=== PATIENT | female | born 1980 | race American Indian/Alaskan Native ===

== ENCOUNTER 2019-06-11 15:13 | Observation (INO) | payer BC ==
[2019-06-11] MEDS ORDERED: NORMODYNE IV ONE ×2 (16:05→18:13)
[2019-06-11] MEDS ORDERED: ZOFRAN IV ONE (16:24)
[2019-06-11] MEDS ORDERED: MORPHINE IV ONE (16:24)
[2019-06-11 16:34] LABS: Basophils # (Auto) 0.1 K/mm3 (0.0-0.1); Basophils % (Auto) 0.5 % (0.0-1.8); Eosinophils # (Auto) 0.1 K/mm3 (0.0-0.4); Hematocrit 44.7 % (30.3-42.9); Hemoglobin 14.9 gm/dl (10.1-14.3); Lymphocytes # (Auto) 1.6 K/mm3 (1.2-5.4); Mean Corpuscular HGB Conc 33 % (30-34); Mean Corpuscular Volume 90 fl (79-97); Monocytes # (Auto) 0.6 K/mm3 (0.0-0.8); Monocytes % (Auto) 5.5 % (0.0-7.3); Platelet Count 354 K/mm3 (140-440); Red Blood Count 4.96 M/mm3 (3.65-5.03); Red Cell Distribution Width 13.6 % (13.2-15.2)
[2019-06-11 16:45] LABS: Partial Thromboplastin Time 27.5 Sec. (24.2-36.6)
[2019-06-11 16:53] LABS: BUN/Creatinine Ratio 20; Blood Urea Nitrogen 16 mg/dL (7-17); Calcium 9.5 mg/dL (8.4-10.2); Hemolysis Index 15
[2019-06-11 16:57] LABS: Alanine Aminotransferase 17 units/L (7-56); Albumin 4.5 g/dL (3.9-5)
[2019-06-11 17:00] LABS: INR 1.01 (0.87-1.13)
[2019-06-11 17:01] LABS: Bilirubin,Direct < 0.2 mg/dL (0-0.2)
[2019-06-11 17:05] LABS: Bacteria,Urine 1+ /HPF (Negative); Bilirubin,Urine NEG (Negative); Blood,Urine NEG (Negative); Color,Urine Yellow (Yellow); Mucus,Urine FEW /HPF; Protein,Urine <15 mg/dL mg/dL (Negative); Urobilinogen,Urine < 2.0 mg/dL (<2.0)
[2019-06-11 17:33] LABS: Amphetamine Screen,Urine PRESUMPTIVE NEGATIVE; Benzodiazepines Screen,Urine PRESUMPTIVE NEGATIVE; Cannabinoid Screen,Urine PRESUMPTIVE NEGATIVE; Cocaine Screen,Urine PRESUMPTIVE NEGATIVE; Methadone Screen,Urine PRESUMPTIVE NEGATIVE; Opiate Screen,Urine PRESUMPTIVE NEGATIVE
--- NOTE | 2019-06-11 17:40 | XRay Report ---
CHEST 1 VIEW INDICATION / CLINICAL INFORMATION: cp upt. COMPARISON: None available. FINDINGS: SUPPORT DEVICES: None. HEART / MEDIASTINUM: No significant abnormality. LUNGS / PLEURA: No significant pulmonary or pleural abnormality. No pneumothorax. ADDITIONAL FINDINGS: No significant additional findings. IMPRESSION: 1. No significant change Signer Name: Leoncio Magaña MD Signed: 06/11/2019 5:36 PM Workstation Name: [id number]
--- NOTE | 2019-06-11 17:42 | Cat Scan Report ---
CT BRAIN: 06/11/2019 INDICATION / CLINICAL INFORMATION: severe headache, htn,. COMPARISON: None available. FINDINGS: BRAIN/INTRACRANIAL STRUCTURES: Unenhanced CT images of the brain demonstrate no evidence of acute int racranial abnormality. Ventricles and sulci are within normal limits of size and shape for a patient of this age. There is no evidence of acute ischemic injury, hemorrhage, or mass. There are no abnormal extra-axial fluid collections. EXTRACRANIAL STRUCTURES: Unremarkable. IMPRESSION: No acute abnormality. All CT scans at this location are performed using dose reduction to ALARA by means of automated expos ure control. Signer Name: Marco Fraser MD Signed: 06/11/2019 5:37 PM Workstation Name: [id number]
[2019-06-11] MEDS ORDERED: NORCO 10/325 PO ONE (18:13)
[2019-06-11] MEDS ORDERED: VASOTEC IV ONE (20:38)
[2019-06-11] MEDS ORDERED: CARDENE 50 MG in NACL 0.9% 250ML 230 ML IV SCH (22:00)
--- NOTE | 2019-06-11 22:04 | Emergency Department Report ---
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 symptoms have been constant since onset and patient rates them as severe in severity. patient reports her pain is located mid chest pain, and describes the quality as pressure. Symptoms are associated elevated blood pressure and headache, but she denies any n/v. MD Complaint: chest pain -: Gradual Severity scale (0 -10): 4 - Related Data Home Medications Medication Instructions Recorded Confirmed Last Taken Butalb/Acetamin/Caff 50-325-40 50 mg PO DAILY 06/11/19 06/11/19 Unknown [Fioricet 50-325-40] Lisinopril [Zestril TAB] 40 mg PO DAILY 06/11/19 06/11/19 Unknown Allergies Allergy/AdvReac Type Severity Reaction Status Date / Time No Known Allergies Allergy Unverified 06/11/19 16:40 Heart Score - HEART Score History: Slightly suspicious EKG: Non-specific Age: < 45 Risk factors: 1-2 risk factors Troponin: < normal limit HEART Score: 2 - Critical Actions Critical Actions: 0-3 pts:0.9-1.7%risk of adverse cardiac event.Candidate for discharge ED Review of Systems ROS: Stated complaint: CHEST PAIN/WEAKNESS Other details as noted in HPI Comment: All other systems reviewed and negative Eyes: denies: eye pain ENT: denies: ear pain Respiratory: SOB with exertion Cardiovascular: chest pain Gastrointestinal: denies: abdominal pain, nausea, diarrhea ED Past Medical Hx - Past Medical History Previous Medical History?: Yes Hx Hypertension: Yes Hx Diabetes: Yes Additional medical history: Migraine, Ulcer - Social History Smoking Status: Never Smoker Substance Use Type: Alcohol - Medications Home Medications: Home Medications Medication Instructions Recorded Confirmed Last Taken Type Butalb/Acetamin/Caff 50-325-40 50 mg PO DAILY 06/11/19 06/11/19 Unknown History [Fioricet 50-325-40] Lisinopril [Zestril TAB] 40 mg PO DAILY 06/11/19 06/11/19 Unknown History ED Physical Exam - General Limitations: No Limitations General appearance: alert, in no apparent distress - Head Head exam: Present: atraumatic, normocephalic - Eye Eye exam: Present: normal appearance, PERRL, EOMI Pupils: Present: normal accommodation - ENT ENT exam: Present: normal exam - Neck Neck exam: Present: normal inspection - Respiratory Respiratory exam: Present: normal lung sounds bilaterally - Cardiovascular Cardiovascular Exam: Present: regular rate, normal rhythm - GI/Abdominal GI/Abdominal exam: Present: soft, normal bowel sounds - Back Exam Back exam: Present: normal inspection - Neurological Exam Neurological exam: Present: alert, oriented X3, CN II-XII intact - Skin Skin exam: Present: warm ED Course Vital Signs 06/11/19 06/11/19 06/11/19 15:31 15:35 15:45 Temperature 98.2 F Pulse Rate 100 H 94 H Respiratory 16 11 L Rate Blood Pressure Blood Pressure 204/144 [Left] O2 Sat by Pulse 100 100 Oximetry 06/11/19 06/11/19 06/11/19 16:00 16:15 16:20 Temperature Pulse Rate 86 94 H 86 Respiratory 12 15 Rate Blood Pressure 217/140 217/140 217/140 Blood Pressure [Left] O2 Sat by Pulse Oximetry 06/11/19 06/11/19 06/11/19 16:33 16:45 17:19 Temperature Pulse Rate 87 85 Respiratory 18 14 18 Rate Blood Pressure 217/140 186/135 186/135 Blood Pressure [Left] O2 Sat by Pulse 98 Oximetry 06/11/19 06/11/19 06/11/19 17:31 17:45 18:01 Temperature Pulse Rate 82 87 83 Respiratory 15 21 9 L Rate Blood Pressure 186/135 84/54 84/54 Blood Pressure [Left] O2 Sat by Pulse 97 99 99 Oximetry 06/11/19 06/11/19 06/11/19 18:15 18:30 18:45 Temperature Pulse Rate 82 79 Respiratory 15 14 Rate Blood Pressure 194/137 182/129 182/129 Blood Pressure [Left] O2 Sat by Pulse 100 97 98 Oximetry 06/11/19 06/11/19 06/11/19 19:00 19:17 19:30 Temperature Pulse Rate Respiratory Rate Blood Pressure 168/130 162/125 Blood Pressure [Left] O2 Sat by Pulse 99 98 98 Oximetry 06/11/19 06/11/19 06/11/19 19:45 20:00 20:15 Temperature Pulse Rate Respiratory Rate Blood Pressure 162/125 194/157 194/157 Blood Pressure [Left] O2 Sat by Pulse 98 97 99 Oximetry 06/11/19 06/11/19 06/11/19 20:35 20:40 20:45 Temperature Pulse Rate 94 H 84 Respiratory 10 L Rate Blood Pressure 194/157 190/138 190/138 Blood Pressure [Left] O2 Sat by Pulse 86 Oximetry 06/11/19 06/11/19 21:00 21:15 Temperature Pulse Rate 73 85 Respiratory 11 L 18 Rate Blood Pressure 161/120 161/120 Blood Pressure [Left] O2 Sat by Pulse 97 97 Oximetry ED Medical Decision Making - Lab Data Result diagrams: 06/11/19 16:15 06/11/19 16:15 - EKG Data -: EKG Interpreted by Me EKG shows normal: sinus rhythm - EKG Data When compared to previous EKG there are: no significant change Interpretation: no acute changes - Medical Decision Making 39 y.o with chest pain, htn, received meds in ER but bp remained critically high. will admit for cardene drip. - Differential Diagnosis htn crisis, acs, Critical Care Time: Yes Critical care time in (mins) excluding proc time.: 45 Critical care attestation.: If time is entered above; I have spent that time in minutes in the direct care of this critically ill patient, excluding procedure time. ED Disposition Clinical Impression: Labile hypertension Chest pain Qualifiers: Chest pain type: other chest pain Qualified Code(s): R07.89 - Other chest pain; R07.8 - Other chest pain Disposition: OP ADMIT IP TO THIS HOSP Is pt being admited?: Yes Does the pt Need Aspirin: Yes Condition: Stable Instructions: Hypertension (ED), Chest Pain (ED) Referrals: WILLI HAMEED MD [Primary Care Provider] - 3-5 Days
[2019-06-11] MEDS ORDERED: ASPIRIN PO ONE (22:08)
[2019-06-11] MEDS ORDERED: PROVENTIL IH PRN (23:32)
[2019-06-11] MEDS ORDERED: TYLENOL PO PRN (23:32)
[2019-06-11] MEDS ORDERED: SODIUM CHLORIDE FLUSH SYRINGE 10 ML IV PRN (23:32)
[2019-06-11] MEDS ORDERED: ZOFRAN IV PRN (23:32)
--- NOTE | 2019-06-11 23:44 | History and Physical Report ---
History of Present Illness Date of examination: 06/11/19 Date of admission: 06/11/2019 Chief complaint: SOB, CP History of present illness: 39-year-old -Burkin[place] female with history of hypertension and DM who presents to [facility] ED with complaints of nonradiating substernal chest pain, and sob. On Saturday pt stated that she began experiencing nonradiating substernal chest pain and shortness of breath at rest, and decided to stay home from work. 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 This morning patient went to work and approximately 2 hours into her shift she started experiencing substernal nonradiating chest pain, and shortness of breath both at rest and with activity. Her symptoms were accompanied by diaphoresis, nausea, emesis and generalized weakness. She describes her pain as chest tightness and recent 04/06. Pt states that she is compliant with hypertensive medication, however over the past 3 months her PCP has changed her meds monthly. Currently she on monotherapy with Lisinopril. Past History Past Medical History: diabetes, hypertension, migraines, other (Ulcer) Past Surgical History: No surgical history Social history: lives with family, other (social drinker). denies: smoking Family history: no significant family history Medications and Allergies Allergies Allergy/AdvReac Type Severity Reaction Status Date / Time No Known Allergies Allergy Unverified 06/11/19 16:40 Home Medications Medication Instructions Recorded Confirmed Last Taken Type Butalb/Acetamin/Caff 50-325-40 50 mg PO DAILY 06/11/19 06/11/19 Unknown History [Fioricet 50-325-40] Lisinopril [Zestril TAB] 40 mg PO DAILY 06/11/19 06/11/19 Unknown History Active Meds: Active Medications Acetaminophen (Tylenol) 650 mg PO Q4H PRN PRN Reason: Pain MILD(1-3)/Fever >100.5/GALLEGOS Albuterol (Proventil) 2.5 mg IH Q3HRT PRN PRN Reason: Shortness Of Breath Docusate Sodium (Colace) 100 mg PO BID MARKY Enoxaparin Sodium (Lovenox) 40 mg SUB-Q QDAY MARKY Nicardipine HCl 50 mg/ Sodium (Chloride) 250 mls @ 25 mls/hr IV TITR MARKY; Protocol Last Titration: 06/11/19 23:01 Dose: 0 mg/hr, 0 mls/hr Documented by: Ondansetron HCl (Zofran) 4 mg IV Q6HR PRN PRN Reason: Nausea And Vomiting Oxycodone/Acetaminophen (Percocet 5/325) 1 tab PO Q6H PRN PRN Reason: Pain, Moderate (4-6) Sodium Chloride (Sodium Chloride Flush Syringe 10 Ml) 10 ml IV BID MARKY Sodium Chloride (Sodium Chloride Flush Syringe 10 Ml) 10 ml IV PRN PRN PRN Reason: LINE FLUSH Review of Systems All systems: negative Constitutional: sweats Cardiovascular: chest pain Gastrointestinal: nausea Neurological: headaches, other (weakness in legs) Exam - Physical Exam Narrative exam: Physical exam General appearance: Present: No acute distress, A&Ox3, well developed, pleasant AA female - EENT Eyes: Present: PERRL, EOM intact ENT: hearing intact, normal dentition - Neck Neck: Present: supple, normal ROM - Respiratory Respiratory effort: Non-labored Respiratory: CTA bilaterally - Cardiovascular Heart rate:85 (bpm) Rhythm: SR Heart Sounds: Present: S1 & S2. Absent: rub, click - Extremities Extremities: no ischemia, pulses intact - Peripheral Assessment Peripheral Pulses: within normal limits - Abdominal General gastrointestinal: soft, non-tender, normal bowel sounds - Integumentary Integumentary: Present: warm, dry - Musculoskeletal Musculoskeletal: able to move all extremities -Neurological Neurological: CN II-XII grossly intact - Psychiatric Psychiatric: cooperative - Constitutional Vitals: Temp Pulse Resp BP Pulse Ox 98.2 F 74 10 L 113/75 99 06/11/19 15:31 06/11/19 23:30 06/11/19 23:30 06/11/19 23:30 06/11/19 23:30 Results - Labs CBC & Chem 7: 06/11/19 16:15 06/11/19 16:15 Labs: Laboratory Last Values WBC 10.5 K/mm3 (4.5-11.0) 06/11/19 16:15 RBC 4.96 M/mm3 (3.65-5.03) 06/11/19 16:15 Hgb 14.9 gm/dl (10.1-14.3) H 06/11/19 16:15 Hct 44.7 % (30.3-42.9) H 06/11/19 16:15 MCV 90 fl (79-97) 06/11/19 16:15 MCH 30 pg (28-32) 06/11/19 16:15 MCHC 33 % (30-34) 06/11/19 16:15 RDW 13.6 % (13.2-15.2) 06/11/19 16:15 Plt Count 354 K/mm3 (140-440) 06/11/19 16:15 Lymph % (Auto) 15.0 % (13.4-35.0) 06/11/19 16:15 Bryan % (Auto) 5.5 % (0.0-7.3) 06/11/19 16:15 Eos % (Auto) 1.0 % (0.0-4.3) 06/11/19 16:15 Baso % (Auto) 0.5 % (0.0-1.8) 06/11/19 16:15 Lymph # 1.6 K/mm3 (1.2-5.4) 06/11/19 16:15 Bryan # 0.6 K/mm3 (0.0-0.8) 06/11/19 16:15 Eos # 0.1 K/mm3 (0.0-0.4) 06/11/19 16:15 Baso # 0.1 K/mm3 (0.0-0.1) 06/11/19 16:15 Seg Neutrophils % 78.0 % (40.0-70.0) H 06/11/19 16:15 Seg Neutrophils # 8.2 K/mm3 (1.8-7.7) H 06/11/19 16:15 PT 13.0 Sec. (12.2-14.9) 06/11/19 16:15 INR 1.01 (0.87-1.13) 06/11/19 16:15 APTT 27.5 Sec. (24.2-36.6) 06/11/19 16:15 < 135.00 ng/mlDDU (0-234) 06/11/19 16:15 Sodium 137 mmol/L (137-145) 06/11/19 16:15 Potassium 4.1 mmol/L (3.6-5.0) 06/11/19 16:15 Chloride 99.6 mmol/L (98-107) 06/11/19 16:15 Carbon Dioxide 24 mmol/L (22-30) 06/11/19 16:15 18 mmol/L 06/11/19 16:15 BUN 16 mg/dL (7-17) 06/11/19 16:15 0.8 mg/dL (0.7-1.2) 06/11/19 16:15 Estimated GFR > 60 ml/min 06/11/19 16:15 20 % 06/11/19 16:15 Glucose 84 mg/dL (65-100) 06/11/19 16:15 Calcium 9.5 mg/dL (8.4-10.2) 06/11/19 16:15 0.20 mg/dL (0.1-1.2) 06/11/19 16:15 < 0.2 mg/dL (0-0.2) 06/11/19 16:15 0.0 mg/dL 06/11/19 16:15 AST 22 units/L (5-40) 06/11/19 16:15 ALT 17 units/L (7-56) 06/11/19 16:15 78 units/L (35-129) 06/11/19 16:15 < 0.010 ng/mL (0.00-0.029) 06/11/19 21:34 8.4 g/dL (6.3-8.2) H 06/11/19 16:15 4.5 g/dL (3.9-5) 06/11/19 16:15 1.2 % 06/11/19 16:15 HCG, Qual Negative (Negative) 06/11/19 16:15 Yellow (Yellow) 06/11/19 16:48 Slightly-cloudy (Clear) 06/11/19 16:48 7.0 (5.0-7.0) 06/11/19 16:48 Ur Specific Kel[place] 1.014 (1.003-1.030) 06/11/19 16:48 <15 mg/dl mg/dL (Negative) 06/11/19 16:48 Neg mg/dL (Negative) 06/11/19 16:48 Tr mg/dL (Negative) 06/11/19 16:48 Neg (Negative) 06/11/19 16:48 Neg (Negative) 06/11/19 16:48 Neg (Negative) 06/11/19 16:48 < 2.0 mg/dL (<2.0) 06/11/19 16:48 Ur Leukocyte Esterase Tr (Negative) 06/11/19 16:48 1.0 /HPF (0.0-6.0) 06/11/19 16:48 4.0 /HPF (0.0-6.0) 06/11/19 16:48 U Epithel Cells (Auto) 12.0 /HPF (0-13.0) 06/11/19 16:48 1+ /HPF (Negative) 06/11/19 16:48 Few /HPF 06/11/19 16:48 Presumptive negative 06/11/19 16:48 Presumptive negative 06/11/19 16:48 Ur Barbiturates Screen Presumptive positive 06/11/19 16:48 Ur Phencyclidine Scrn Presumptive negative 06/11/19 16:48 Ur Amphetamines Screen Presumptive negative 06/11/19 16:48 U Benzodiazepines Scrn Presumptive negative 06/11/19 16:48 Presumptive negative 06/11/19 16:48 U Marijuana (THC) Screen Presumptive negative 06/11/19 16:48 Disclamer 06/11/19 16:48 - Imaging and Cardiology Chest x-ray: report reviewed (LUNGS / PLEURA: No significant pulmonary or pleural abnormality. No pneumothorax. ), image reviewed Imaging and Cardiology: CT Head: Findings: BRAIN/INTRACRANIAL STRUCTURES: Unenhanced CT images of the brain demonstrate no evidence of acute intracranial abnormality. Ventricles and sulci are within normal limits of size and shape for a patient of this age. There is no evidence of acute ischemic injury, hemorrhage, or mass. There are no abnormal extra-axial fluid collections. EXTRACRANIAL STRUCTURES: Unremarkable. Impression: No acute abnormality. Assessment and Plan Assessment and plan: 39-year-old -Burkin[place] female with history of hypertension and DM who presents to [facility] ED with complaints of chest pain, and sob. She was found to be in hypertensive urgency. HTN Urgency -CT Head showed no evidence of acute intracranial abnormality. -uncontrolled HTN -BP 217/140 -Placed on Cardene gtt, has since been weaned off -Continue to monitor BP -Transition to oral Valsartan, will consider adding CCB or diuretic if BP not controlled -IV hydralazine when necessary Acute Chest Pain -Troponin x3 negative -Echo and stress test pending -Cardiology consult pending DM -HgbA1C pending -POC BG monitoring -SSI coverage DVT PPX -On Heparin Advance Directives: No VTE prophylaxis?: Chemical Plan of care discussed with patient/family: Yes
[2019-06-11] MEDS ORDERED: D50W (25GM) Syringe IV PRN (23:45)
[2019-06-12] MEDS ORDERED: APRESOLINE IV PRN (01:23)
--- NOTE | 2019-06-12 01:41 | Event Note ---
39-year-old woman with past medical history of hypertension, migraines who presents to the hospital with chest pain, headache and elevated blood pressure the patient states that her blood pressure medications have been changed by her doctor every month, she has not had adequate blood pressure control. She is currently on monotherapy with lisinopril. Chest pain; likely due to hypertensive urgency, but will need stress test and echo Hypertensive urgency, patient has been weaned off Cardene drip, patient now placed on valsartan. Hydralazine when necessary, if blood pressure not controlled on valsartan and will likely add either calcium channel latrice or a diuretic. DVT prophylaxis; early ambulation
[2019-06-12] MEDS: PERCOCET 5/325 PO PRN ×2 (05:26→21:13)
[2019-06-12 06:19] LABS: Basophils % (Auto) 0.6 % (0.0-1.8); Eosinophils # (Auto) 0.1 K/mm3 (0.0-0.4); Eosinophils % (Auto) 1.2 % (0.0-4.3); Hematocrit 41.8 % (30.3-42.9); Lymphocytes # (Auto) 1.2 K/mm3 (1.2-5.4); Lymphocytes % (Auto) 17.1 % (13.4-35.0); Mean Corpuscular HGB Conc 34 % (30-34); Mean Corpuscular Volume 91 fl (79-97); Monocytes # (Auto) 0.5 K/mm3 (0.0-0.8); Monocytes % (Auto) 6.3 % (0.0-7.3); Platelet Count 304 K/mm3 (140-440); Red Cell Distribution Width 13.7 % (13.2-15.2)
[2019-06-12 06:40] LABS: BUN/Creatinine Ratio 24; Blood Urea Nitrogen 19 mg/dL (7-17); Calcium 9.4 mg/dL (8.4-10.2); Hemolysis Index 5
[2019-06-12] MEDS: HumaLOG SUB-Q SCH ×2 (07:11→13:12)
--- NOTE | 2019-06-12 07:18 | Consultation ---
History of Present Illness Consult date: 06/12/19 Requesting physician: FADI SCHULTZ Consult reason: chest pain, hypertension History of present illness: 39-year-old -Armenian female with history of hypertension and DM who presents to [facility] ED with complaints of nonradiating substernal chest pain, and sob. On Saturday pt stated that she began experiencing nonradiating substernal chest pain and shortness of breath at rest, and decided to stay home from work. 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 This morning patient went to work and approximately 2 hours into her shift she started experiencing substernal nonradiating chest pain, and shortness of breath both at rest and with activity. Her symptoms were accompanied by diaphoresis, nausea, emesis and generalized weakness. She describes her pain as chest tightness and recent 04/06 . Pt states that she is compliant with hypertensive medication, however over the past 3 months her PCP has changed her meds monthly. Currently she on monotherapy with Lisinopril. d dimer and trop neg. cxr and head ct show now acute changes. pt states that she had similar issues 2-3 yr ago and was evaluated at [facility] but a dx was not made. she also has had 5-6 syncopal spells over the past 5-6 yrs, each occurring from an upright position and assoc with dizziness,lightheadedness, and chest pain. no injures sustained. pt states that she constantly has cp,dizziness and palp but has passed out only the 5-6 times as mentioned. Past History Past Medical History: diabetes, hypertension, migraines, other (Ulcer) Past Surgical History: No surgical history Social history: lives with family, other (social drinker). denies: smoking Family history: no significant family history Medications and Allergies Allergies Allergy/AdvReac Type Severity Reaction Status Date / Time No Known Allergies Allergy Unverified 06/11/19 16:40 Home Medications Medication Instructions Recorded Confirmed Last Taken Type Butalb/Acetamin/Caff 50-325-40 50 mg PO DAILY 06/11/19 06/11/19 Unknown History [Fioricet 50-325-40] Lisinopril [Zestril TAB] 40 mg PO DAILY 06/11/19 06/11/19 Unknown History Active Meds: Active Medications Acetaminophen (Tylenol) 650 mg PO Q4H PRN PRN Reason: Pain MILD(1-3)/Fever >100.5/GALLEGOS Acetaminophen/Butalbital/Caffeine (Fioricet) 1 tab PO DAILY [facility] Albuterol (Proventil) 2.5 mg IH Q3HRT PRN PRN Reason: Shortness Of Breath Amlodipine Besylate (Norvasc) 10 mg PO QDAY [facility] Dextrose (D50w (25gm) Syringe) 50 ml IV PRN PRN PRN Reason: Hypoglycemia Docusate Sodium (Colace) 100 mg PO BID [facility] Enoxaparin Sodium (Lovenox) 40 mg SUB-Q QDAY [facility] Hydralazine HCl (Apresoline) 10 mg IV Q4HR PRN PRN Reason: BP >160/100 Last Admin: 06/12/19 05:27 Dose: 10 mg Documented by: Insulin Human Lispro (Humalog) 0 unit SUB-Q ACHS [facility]; Protocol Ondansetron HCl (Zofran) 4 mg IV Q6HR PRN PRN Reason: Nausea And Vomiting Oxycodone/Acetaminophen (Percocet 5/325) 1 tab PO Q6H PRN PRN Reason: Pain, Moderate (4-6) Last Admin: 06/12/19 05:26 Dose: 1 tab Documented by: Sodium Chloride (Sodium Chloride Flush Syringe 10 Ml) 10 ml IV BID [facility] Sodium Chloride (Sodium Chloride Flush Syringe 10 Ml) 10 ml IV PRN PRN PRN Reason: LINE FLUSH Valsartan (Diovan) 160 mg PO BID [facility] Review of Systems Constitutional: no fever, no chills Eyes: bilateral: diplopia (w/o) Ears, nose, mouth and throat: no epistaxis Cardiovascular: syncope, no orthopnea, no palpitations Respiratory: no hemoptysis Gastrointestinal: no abdominal pain Genitourinary Female: no flank pain Musculoskeletal: no frequent falls Integumentary: no rash Neurological: syncope, no transient paralysis, no change in speech Psychiatric: no anxiety Endocrine: no cold intolerance, no heat intolerance Hematologic/Lymphatic: no easy bruising Allergic/Immunologic: no urticaria, no wheezing Physical Examination Vital Signs Temp Pulse Resp BP Pulse Ox 98.2 F 100 H 16 204/144 100 06/11/19 15:31 06/11/19 15:31 06/11/19 15:31 06/11/19 15:31 06/11/19 15:31 Results 06/12/19 05:25 06/12/19 05:25 Cardiac Enzymes 06/11/19 Range/Units 16:15 AST 22 (5-40) units/L Coagulation 06/11/19 Range/Units 16:15 PT 13.0 (12.2-14.9) Sec. INR 1.01 (0.87-1.13) APTT 27.5 (24.2-36.6) Sec. CBC 06/11/19 06/12/19 Range/Units 16:15 05:25 WBC 10.5 7.3 (4.5-11.0) K/mm3 RBC 4.96 4.60 (3.65-5.03) M/mm3 Hgb 14.9 H 14.0 (10.1-14.3) gm/dl Hct 44.7 H 41.8 (30.3-42.9) % Plt Count 354 304 (140-440) K/mm3 Lymph # 1.6 1.2 (1.2-5.4) K/mm3 Becker # 0.6 0.5 (0.0-0.8) K/mm3 Eos # 0.1 0.1 (0.0-0.4) K/mm3 Baso # 0.1 0.0 (0.0-0.1) K/mm3 Comprehensive Metabolic Panel 06/11/19 06/11/19 06/12/19 Range/Units 16:15 16:15 05:25 Sodium 137 138 (137-145) mmol/L Potassium 4.1 3.9 (3.6-5.0) mmol/L Chloride 99.6 102.7 (98-107) mmol/L Carbon Dioxide 24 23 (22-30) mmol/L BUN 16 19 H (7-17) mg/dL Creatinine 0.8 0.8 (0.7-1.2) mg/dL Glucose 84 104 H (65-100) mg/dL Calcium 9.5 9.4 (8.4-10.2) mg/dL Direct Bilirubin < 0.2 (0-0.2) mg/dL Indirect Bilirubin 0.0 mg/dL AST 22 (5-40) units/L ALT 17 (7-56) units/L Alkaline Phosphatase 78 (35-129) units/L Total Protein 8.4 H (6.3-8.2) g/dL Albumin 4.5 (3.9-5) g/dL Assessment and Plan hypertension chest pain palp syncope agree with mgt. stress test and echo pending. will review further rec to follow
--- NOTE | 2019-06-12 07:23 | Discharge Summary ---
Providers - Providers Date of Admission: 06/11/19 23:32 Date of discharge: 06/13/19 Attending physician: HIEU LILLY 06/11/19 23:32 Consult to Physician [CONS] Routine Comment: Consulting Provider: VERNON PEARL Physician Instructions: Reason For Exam: CP, HTN Urgerncy 06/11/19 23:36 Consult to Physician [CONS] Routine Comment: Consulting Provider: TRUONG ALEMAN Physician Instructions: Reason For Exam: HTN urgerncy on cardene gtt Primary care physician: WILLI HAMEED Hospitalization Condition: Stable Hospital course: Patient is a 39 yo woman with a history of hypertension and migraines who presented to the hospital with chest pains, headaches and elevated blood pressure Discharge Diagnoses: Status migrainosus: iv reglan and iv benadryl due to the intractable nausea will give NSAID/naproxen use Fioricet instead of Triptans because it usually works for her at home HTN Urgency -CT Head showed no evidence of acute intra-cranial abnormality. -uncontrolled HTN -BP 217/140 -Placed on Cardene gtt, has since been weaned off -Continue to monitor BP -Transition to oral Valsartan, -IV hydralazine when necessary added Norvasc add bblocker Acute Chest Pain, costochondritis mostl likely -Troponin x3 negative -Echo and stress test pending==>unremarkable -Cardiology consult pending no DM, -HgbA1C 5.2 -POC BG monitoring -SSI coverage will d/c DVT PPX -On Heparin Disposition: DC-01 TO HOME OR SELFCARE Time spent for discharge: 36 minutes Core Measure Documentation - Palliative Care Palliative Care/ Comfort Measures: Not Applicable - Core Measures Any of the following diagnoses?: none - VTE Discharge Requirements Deep Vein Thrombosis/Pulmonary Embolism Present on Admission: No Has pt received <5 days of overlap therapy or INR<2.0: No Anticoagulant overlap therapy prescribed at discharge: No Contraindication No Overlap Therapy order at DC: Not Indicated Exam - Physical Exam Narrative exam: Gen: WDWN, NAD, Awake, Alert, Orientated HEENT: NCAT, EOMI, PERRL, OP Clear Neck: supple, no adenopathy, no thyromegaly, no JVD CVS/Heart: RRR, normal S1S2, pulses present bilaterally Chest/Lungs: CTA B, Symmetrical chest expansion, good air entry bilaterally GI/Abdomen: soft, NTND, good bowel sounds, no guarding or rebound /Bladder: no suprapubic tenderness, no CVA or paraspinal tenderness Extermity/Skin: no c/c/e, no obvious rash MSK: FROM x 4 Neuro: CN 2-12 grossly intact, no new focal deficits Psych: calm - Constitutional Vitals: Temp Pulse Resp BP Pulse Ox 97.8 F 76 16 153/106 98 06/12/19 05:21 06/12/19 05:21 06/12/19 05:21 06/12/19 05:21 06/12/19 05:21 Plan Activity: other (no strenous activity unless cleared by PCP) Diet: low salt Follow up with: WILLI HAMEED MD [Primary Care Provider] - 3-5 Days Prescriptions: Butalb/Acetamin/Caff 50-325-40 [Fioricet 50-325-40] 50 mg PO DAILY PRN #15 tablet PRN Reason: Migraine Headache Metoprolol [Lopressor TAB] 25 mg PO BID #50 tablet amLODIPine [Norvasc] 10 mg PO QDAY #30 tablet oxyCODONE /ACETAMINOPHEN [Percocet 5/325 mg] 1 tab PO Q6H PRN #12 tablet PRN Reason: Pain , Severe (7-10) Lisinopril [Zestril TAB] 40 mg PO DAILY #30 tablet
[2019-06-12] MEDS: SODIUM CHLORIDE FLUSH SYRINGE 10 ML IV SCH ×2 (09:59→21:15)
[2019-06-12] MEDS ORDERED: FIORICET PO SCH (10:00)
[2019-06-12] MEDS ORDERED: LEXISCAN IV ONE ×2 (10:55→10:57)
--- NOTE | 2019-06-12 12:51 | Event Note ---
Date: 06/12/19 ICU consult placed 06/11/19, but patient downgraded to telemetry and now may be discharged. Will cancel consult. Please call if any pulmonary issues need to be addressed.
--- NOTE | 2019-06-12 13:11 | Event Note ---
Date: 06/12/19 lexiscan stress. lvef 60%. no ischemia or necrosis
[2019-06-12] MEDS: COLACE PO SCH ×2 (13:13→21:13)
[2019-06-12] MEDS: LOVENOX SUB-Q SCH (13:13)
[2019-06-12] MEDS: DIOVAN PO SCH ×2 (13:14→21:14)
[2019-06-12] MEDS: NORVASC PO SCH (13:14)
[2019-06-12] MEDS ORDERED: BENADRYL IV ONE (15:51)
[2019-06-12] MEDS ORDERED: REGLAN IV ONE (15:51)
--- NOTE | 2019-06-12 15:59 | Progress Note ---
Assessment and Plan Assessment and plan: Patient is a 39 yo woman with a history of hypertension and migraines who presented to the hospital with chest pains, headaches and elevated blood pressure Status migrainosus: iv reglan and iv benadryl due to the intractable nausea will give NSAID/naproxen use Fioricet instead of Triptans because it usually works for her at home HTN Urgency -CT Head showed no evidence of acute intra-cranial abnormality. -uncontrolled HTN -BP 217/140 -Placed on Cardene gtt, has since been weaned off -Continue to monitor BP -Transition to oral Valsartan, will consider adding CCB or diuretic if BP not controlled -IV hydralazine when necessary added Norvasc add bblocker Acute Chest Pain, costochondritis mostl likely -Troponin x3 negative -Echo and stress test pending==>unremarkable -Cardiology consult pending no DM, -HgbA1C 5.2 -POC BG monitoring -SSI coverage will d/c DVT PPX -On Heparin hold d/c bp still too high to discharge, made medication adjustments, uncontrolled due to status migrainosus History Interval history: Patient was seen and examined. Follow-up on current diagnosis GALLEGOS, moderate, light sensitivity, nausea >3 days. No overnight events reported to me. Patient denies any chest pain, shortness breath, Imaging, nursing note, chart, labs and old chart reviewed. Discussed with patient. Hospitalist Physical - Physical exam Narrative exam: Gen: WDWN, NAD, Awake, Alert, Orientated HEENT: NCAT, EOMI, PERRL, OP Clear Neck: supple, no adenopathy, no thyromegaly, no JVD CVS/Heart: RRR, normal S1S2, pulses present bilaterally Chest/Lungs: CTA B, Symmetrical chest expansion, good air entry bilaterally GI/Abdomen: soft, NTND, good bowel sounds, no guarding or rebound /Bladder: no suprapubic tenderness, no CVA or paraspinal tenderness Extermity/Skin: no c/c/e, no obvious rash MSK: FROM x 4 Neuro: CN 2-12 grossly intact, no new focal deficits Psych: calm - Constitutional Vitals: Temp Pulse Resp BP Pulse Ox 98.5 F 109 H 18 169/113 99 06/12/19 07:30 06/12/19 13:14 06/12/19 07:30 06/12/19 13:14 06/12/19 07:30 Results - Labs CBC & Chem 7: 06/12/19 05:25 06/12/19 05:25 Labs: Laboratory Last Values WBC 7.3 K/mm3 (4.5-11.0) 06/12/19 05:25 RBC 4.60 M/mm3 (3.65-5.03) 06/12/19 05:25 Hgb 14.0 gm/dl (10.1-14.3) 06/12/19 05:25 Hct 41.8 % (30.3-42.9) 06/12/19 05:25 MCV 91 fl (79-97) 06/12/19 05:25 MCH 31 pg (28-32) 06/12/19 05:25 MCHC 34 % (30-34) 06/12/19 05:25 RDW 13.7 % (13.2-15.2) 06/12/19 05:25 Plt Count 304 K/mm3 (140-440) 06/12/19 05:25 Lymph % (Auto) 17.1 % (13.4-35.0) 06/12/19 05:25 [place] % (Auto) 6.3 % (0.0-7.3) 06/12/19 05:25 Eos % (Auto) 1.2 % (0.0-4.3) 06/12/19 05:25 Baso % (Auto) 0.6 % (0.0-1.8) 06/12/19 05:25 Lymph # 1.2 K/mm3 (1.2-5.4) 06/12/19 05:25 [place] # 0.5 K/mm3 (0.0-0.8) 06/12/19 05:25 Eos # 0.1 K/mm3 (0.0-0.4) 06/12/19 05:25 Baso # 0.0 K/mm3 (0.0-0.1) 06/12/19 05:25 Seg Neutrophils % 74.8 % (40.0-70.0) H 06/12/19 05:25 Seg Neutrophils # 5.4 K/mm3 (1.8-7.7) 06/12/19 05:25 PT 13.0 Sec. (12.2-14.9) 06/11/19 16:15 INR 1.01 (0.87-1.13) 06/11/19 16:15 APTT 27.5 Sec. (24.2-36.6) 06/11/19 16:15 < 135.00 ng/mlDDU (0-234) 06/11/19 16:15 Sodium 138 mmol/L (137-145) 06/12/19 05:25 Potassium 3.9 mmol/L (3.6-5.0) 06/12/19 05:25 Chloride 102.7 mmol/L (98-107) 06/12/19 05:25 Carbon Dioxide 23 mmol/L (22-30) 06/12/19 05:25 16 mmol/L 06/12/19 05:25 BUN 19 mg/dL (7-17) H 06/12/19 05:25 0.8 mg/dL (0.7-1.2) 06/12/19 05:25 Estimated GFR > 60 ml/min 06/12/19 05:25 24 % 06/12/19 05:25 Glucose 104 mg/dL (65-100) H 06/12/19 05:25 POC Glucose 100 (70-105) 06/12/19 13:17 5.2 % (4-6) 06/12/19 05:25 Calcium 9.4 mg/dL (8.4-10.2) 06/12/19 05:25 0.20 mg/dL (0.1-1.2) 06/11/19 16:15 < 0.2 mg/dL (0-0.2) 06/11/19 16:15 0.0 mg/dL 06/11/19 16:15 AST 22 units/L (5-40) 06/11/19 16:15 ALT 17 units/L (7-56) 06/11/19 16:15 78 units/L (35-129) 06/11/19 16:15 < 0.010 ng/mL (0.00-0.029) 06/11/19 21:34 8.4 g/dL (6.3-8.2) H 06/11/19 16:15 4.5 g/dL (3.9-5) 06/11/19 16:15 1.2 % 06/11/19 16:15 HCG, Qual Negative (Negative) 06/11/19 16:15 Yellow (Yellow) 06/11/19 16:48 Slightly-cloudy (Clear) 06/11/19 16:48 7.0 (5.0-7.0) 06/11/19 16:48 Ur Specific [place] 1.014 (1.003-1.030) 06/11/19 16:48 <15 mg/dl mg/dL (Negative) 06/11/19 16:48 Neg mg/dL (Negative) 06/11/19 16:48 Tr mg/dL (Negative) 06/11/19 16:48 Neg (Negative) 06/11/19 16:48 Neg (Negative) 06/11/19 16:48 Neg (Negative) 06/11/19 16:48 < 2.0 mg/dL (<2.0) 06/11/19 16:48 Ur Leukocyte Esterase Tr (Negative) 06/11/19 16:48 1.0 /HPF (0.0-6.0) 06/11/19 16:48 4.0 /HPF (0.0-6.0) 06/11/19 16:48 U Epithel Cells (Auto) 12.0 /HPF (0-13.0) 06/11/19 16:48 1+ /HPF (Negative) 06/11/19 16:48 Few /HPF 06/11/19 16:48 Presumptive negative 06/11/19 16:48 Presumptive negative 06/11/19 16:48 Ur Barbiturates Screen Presumptive positive 06/11/19 16:48 Ur Phencyclidine Scrn Presumptive negative 06/11/19 16:48 Ur Amphetamines Screen Presumptive negative 06/11/19 16:48 U Benzodiazepines Scrn Presumptive negative 06/11/19 16:48 Presumptive negative 06/11/19 16:48 U Marijuana (THC) Screen Presumptive negative 06/11/19 16:48 Disclamer 06/11/19 16:48 Active Medications - Current Medications Current Medications: Generic Name Dose Route Start Last Admin Trade Name Freq PRN Reason Stop Dose Admin Acetaminophen 650 mg 06/11/19 23:32 Tylenol PO Q4H PRN Pain MILD(1-3)/Fever >100.5/GALLEGOS Acetaminophen/Butalbital/Caffeine 1 tab 06/12/19 16:00 Fioricet PO 06/13/19 16:01 TID MARKY Albuterol 2.5 mg 06/11/19 23:32 Proventil IH Q3HRT PRN Shortness Of Breath Amlodipine Besylate 10 mg 06/12/19 10:00 06/12/19 13:14 Norvasc PO 10 mg QDAY MARKY Administration Dextrose 50 ml 06/11/19 23:45 D50w (25gm) Syringe IV PRN PRN Hypoglycemia Diphenhydramine HCl 25 mg 06/12/19 15:51 Benadryl IV 06/12/19 15:52 ONCE ONE Docusate Sodium 100 mg 06/12/19 10:00 06/12/19 13:13 Colace PO 100 mg BID [facility] Administration Enoxaparin Sodium 40 mg 06/12/19 10:00 06/12/19 13:13 Lovenox SUB-Q 40 mg QDAY [facility] Administration Hydralazine HCl 10 mg 06/12/19 01:23 06/12/19 05:27 Apresoline IV 10 mg Q4HR PRN Administration BP >160/100 Insulin Human Lispro 0 unit 06/12/19 07:30 06/12/19 13:12 Humalog SUB-Q Not Given ACHS [facility] Protocol Metoclopramide HCl 10 mg 06/12/19 15:51 Reglan IV 06/12/19 15:52 ONCE ONE Metoprolol Tartrate 25 mg 06/12/19 16:00 Lopressor PO BID [facility] Ondansetron HCl 4 mg 06/11/19 23:32 06/12/19 09:59 Zofran IV 4 mg Q6HR PRN Administration Nausea And Vomiting Oxycodone/Acetaminophen 1 tab 06/11/19 23:32 06/12/19 05:26 Percocet 5/325 PO 1 tab Q6H PRN Administration Pain, Moderate (4-6) Sodium Chloride 10 ml 06/12/19 10:00 06/12/19 09:59 Sodium Chloride Flush Syringe 10 Ml IV 10 ml BID MARKY Administration Sodium Chloride 10 ml 06/11/19 23:32 Sodium Chloride Flush Syringe 10 Ml IV PRN PRN LINE FLUSH Valsartan 160 mg 06/12/19 10:00 06/12/19 13:14 Diovan PO 160 mg BID MARKY Administration
[2019-06-12] MEDS ORDERED: NAPROSYN PO ONE (16:01)
[2019-06-12] MEDS: LOPRESSOR PO SCH ×2 (16:02→21:14)
[2019-06-12] MEDS: FIORICET PO SCH (16:12)
[2019-06-12] MEDS: PROTONIX PO SCH (16:32)
[2019-06-12] MEDS ORDERED: NAPROSYN PO SCH (22:00)
--- NOTE | 2019-06-12 22:41 | Treadmill Report ---
NUCLEAR CARDIAC IMAGING REPORT INDICATION FOR PROCEDURE: Chest pain. Informed consent was obtained. Vasodilator stress was achieved with the intravenous administration of 0.4 mg of Lexiscan per protocol. Stress and rest nuclear cardiac imaging was performed following the intravenous administration of technetium-99m Myoview per protocol. Gated SPECT imaging demonstrates a post-stress left ventricular ejection fraction of 60% with normal wall motion. Myocardial perfusion imaging demonstrates no significant cavity change between stress and rest. No significant stress induced perfusion defects are seen. Nuclear cardiac imaging demonstrates grossly normal left ventricular systolic function with no significant evidence of myocardial ischemia or necrosis. JOB# [id number] PADMINI/REGGIE
[2019-06-13] MEDS: FIORICET PO SCH ×3 (03:39→13:33)
[2019-06-13] MEDS: LOPRESSOR PO SCH (09:01)
[2019-06-13] MEDS: LOVENOX SUB-Q SCH (09:01)
[2019-06-13] MEDS: COLACE PO SCH (09:02)
[2019-06-13] MEDS: NORVASC PO SCH (09:02)
[2019-06-13] MEDS: SODIUM CHLORIDE FLUSH SYRINGE 10 ML IV SCH (09:17)
[2019-06-13] MEDS: PROTONIX PO SCH (09:19)
[2019-06-13] MEDS: DIOVAN PO SCH (09:19)
--- NOTE | 2019-06-13 09:49 | Progress Note ---
Assessment and Plan The patient is stable from a cardiac standpoint. We have nothing further to add at this time and will sign off. The patient has been evaluated by Dr. Mosqueda, who developed the assessment and plan. Subjective Date of service: 06/13/19 Interval history: Patient is lying in bed in NAD. No complaints. Stress and echo negative. Objective Last Vital Signs Temp 98.6 F 06/13/19 08:02 Pulse 77 06/13/19 09:19 Resp 18 06/13/19 04:32 BP 143/96 06/13/19 09:19 Pulse Ox 99 06/13/19 08:02 - Physical Examination General: No Apparent Distress HEENT: Positive: PERRL Neck: Positive: neck supple Cardiac: Positive: Reg Rate and Rhythm Lungs: Positive: Normal Exam Neuro: Positive: Grossly Intact Abdomen: Positive: Unremarkable /Rectal: Other (deferred) Skin: Positive: Clear Musculoskeletal: Normal Range of Motion Extremities: Present: normal - Imaging and Cardiology Nuclear stress test: report reviewed (06/12/19: Negative for ischemia and infarct) Echo: report reviewed (06/12/19: EF 55-60%, normal cardiac function ) - Telemetry EKG Rhythm: Sinus Rhythm
[2019-06-13 18:11] VITALS: BP 143/67
== END 2019-06-13 16:37 | disposition home or self-care (01) ==
LOC: ED 15:13 → CC1 23:32 → INTOOBSV 23:32 → 4A 06-12 03:34
PROVIDERS: ADMIT Internal Medicine; ATTEND Internal Medicine
DX: I16.0 Hypertensive urgency (principal); R07.89 Other chest pain; E11.9 Type 2 diabetes mellitus without complications; I10 Essential (primary) hypertension; G43.909 Migraine, unspecified, not intractable, without status migrainosus
CPT/HCPCS: 36415; 70450; 71045; 78452; 80048; 80076; 80307; 81001; 82962; 83036; 84484; 84703; 85025; 85379; 85610; 85730; 93005; 93010; 93017; 93306; 96372; 96374; 96375; 96376; 99291; A9502; G0378; J0360; J1200; J1650; J2270; J2405; J2765; J2785; J7050